=== PATIENT | female | born 1995 | race Caucasian/White ===

== ENCOUNTER 2017-12-02 19:06 | Emergency (ER) | payer MEDICAID ==
[~2017-12-02] VITALS: Ht 165.1 cm; Wt 104.3 kg
[2017-12-02 19:15] VITALS: Ht 165.1 cm; Wt 104.3 kg
[2017-12-02 21:00] VITALS: BP 125/73
== END 2017-12-02 21:00 | disposition home or self-care (01) ==
LOC: ED 19:06
DX: S63.501A Unspecified sprain of right wrist, initial encounter (principal); X58.XXXA Exposure to other specified factors, initial encounter; Y93.89 Activity, other specified; Y92.89 Other specified places as the place of occurrence of the external cause; Y99.8 Other external cause status

== ENCOUNTER 2019-10-27 15:15 | Emergency (ER) | payer MEDICAID ==
[~2019-10-27] VITALS: Ht 165.1 cm; Wt 100.7 kg
[2019-10-27 15:21] VITALS: Ht 165.1 cm; Wt 100.7 kg
[2019-10-27 16:01] VITALS: BP 115/74
== END 2019-10-27 16:01 | disposition home or self-care (01) ==
LOC: ED 15:15
DX: S29.012A Strain of muscle and tendon of back wall of thorax, initial encounter (principal); X58.XXXA Exposure to other specified factors, initial encounter; Y93.89 Activity, other specified; Y92.89 Other specified places as the place of occurrence of the external cause; Y99.8 Other external cause status
CPT/HCPCS: Q0092